=== PATIENT | female | born 1995 | race Hispanic/Latino ===

== ENCOUNTER 2021-03-19 20:51 | Day surgery (SDC) | payer OTHER ==
[2021-03-19] MEDS ORDERED: hydrALAZINE 20 MG/ML VIAL SLOW IVP PRN (22:01)
[2021-03-19 22:04] VITALS: BMI 26.9
[2021-03-19 22:16] LABS: Bilirubin Neg (Negative); Blood, Urine Negative (Negative); Glucose, Urine (Dipstick) Normal (Negative); Ketone, Urine Negative (Negative); Leukocyte Negative (Negative); Nitrite Negative (Negative); Protein, Urine (Dipstick) Negative (Neg-Trace); Specific Gravity, Urine 1.015 (1.002-1.036); Urobilinogen Normal mg/dL (Less than 2)
[2021-03-19 22:19] LABS: Clarity Hazy (Clear)
[2021-03-19 22:27] LABS: Fetal Membranes Rupture No Membranes Rupture (No Rupture)
[2021-03-19 22:30] LABS: Bacteria/HPF 2+ HPF (None Seen); Mucous/LPF 2+ LPF (<2+); RBC/HPF 0-3 HPF (0-3); Squamous Epithelial 0-3 HPF (0-3); WBC/HPF 0-3 HPF (0-3)
[2021-03-20] MEDS ORDERED: metroNIDAZOLE 500 MG TAB PO SCH (21:00)
== END 2021-03-19 22:50 | disposition home or self-care (01) ==
LOC: CSHLD/OP 20:51
PROVIDERS: ATTEND Family Medicine
DX: O99.891 Other specified diseases and conditions complicating pregnancy (principal); O34.219 Maternal care for unspecified type scar from previous cesarean delivery; N85.8 Other specified noninflammatory disorders of uterus; N89.8 Other specified noninflammatory disorders of vagina; Z3A.23 23 weeks gestation of pregnancy; Z87.59 Personal history of other complications of pregnancy, childbirth and the puerperium; Z79.899 Other long term (current) drug therapy
CPT/HCPCS: 81001; 84112; 87480; 87510; 87660

== ENCOUNTER 2021-06-29 08:26 | Outpatient (CLI) | payer OTHER ==
[2021-06-29 10:36] LABS: Hemoglobin 11.1 g/dL (12.0-15.5); Mean Corpuscular HGB CONC 33.8 g/dL (32.0-36.0); Mean Corpuscular Hemoglobin 28.4 pg (27.0-33.0); Mean Corpuscular Volume 83.9 fl (81.6-98.3); Mean Platelet Volume 8.8 fl (7.4-10.4); Platelet Count 316 10x3/uL (150-450); RBC Distribution Width 14.4 % (11.5-14.5); Red Blood Cell (RBC) Count 3.91 10x6/uL (3.90-5.03); White Blood Cell (WBC) Count 11.1 10x3/uL (3.5-10.5)
[2021-06-29 10:39] LABS: Hep B Surf Ag Non-Reactive S/CO (NonReactive); Syphilis Antibody Nonreactive (Nonreactive); Syphilis Antibody Index 0.03 S/CO (<1.00 Non-Reactive)
[2021-06-29 10:55] LABS: HBSAg Index 0.15 S/CO (0-0.99)
[2021-06-30 10:45] LABS: SARS-CoV-2 PCR by NAA DETECTED (NotDetected)
== END 2021-06-29 08:27 | disposition home or self-care (01) ==
LOC: EDUNIT# 08:26 → CSHLAB 08:26
PROVIDERS: ATTEND Family Medicine
DX: U07.1 COVID-19 (principal)
CPT/HCPCS: 85027; 86780; 86900; 86901; 87340; U0003; U0005

== ENCOUNTER 2021-07-03 10:07 | Inpatient (IN) | payer MEDICAID, OTHER ==
[2021-07-03 10:37] VITALS: BMI 32.4
[2021-07-03] MEDS ORDERED: hydrALAZINE 20 MG/ML VIAL SLOW IVP PRN ×2 (10:39→15:09)
[2021-07-03] MEDS ORDERED: Bicitra 30 ML UDCUP PO PRN (10:39)
[2021-07-03] MEDS ORDERED: Promethazine HCl 25 MG/ML VIAL IM PRN ×2 (10:39→13:16)
[2021-07-03] MEDS ORDERED: ceFAZolin 2 GM/Dextrose 50 ML 2 GM in Premix Bag 1 BAG IVPB SCH (10:39)
[2021-07-03] MEDS ORDERED: Famotidine/PF 20 mg/2ml Vial SLOW IVP PRN (10:39)
[2021-07-03] MEDS ORDERED: Ondansetron PF 4 MG/2 ML Vial IVP PRN ×3 (10:39→15:09)
[2021-07-03] MEDS ORDERED: Lactated Ringer's 1,000 ML IV SCH (10:39)
[2021-07-03] MEDS ORDERED: Morphine PF 10 MG/10 ML VIAL ONE (11:50)
[2021-07-03] MEDS ORDERED: Phenylephrine 10 MG/ML VIAL ONE (11:51)
[2021-07-03] MEDS ORDERED: Fentanyl 100 MCG/2 ML VIAL ONE (11:51)
[2021-07-03] MEDS ORDERED: Oxytocin 10 UNITS/ML VIAL ONE (11:51)
[2021-07-03] MEDS ORDERED: Dexamethasone 4 mg/ml Vial ONE (12:43)
[2021-07-03] MEDS ORDERED: Ketorolac Tromethamine 30 MG/ML VIAL ONE (12:43)
[2021-07-03] MEDS ORDERED: diphenhydrAMINE 50 MG/ML VIAL ONE (12:43)
[2021-07-03] MEDS ORDERED: Ondansetron PF 4 MG/2 ML Vial ONE (12:43)
[2021-07-03] MEDS ORDERED: HYDROmorphone 2 MG/ML VIAL SLOW IVP PRN (13:16)
[2021-07-03] MEDS ORDERED: Naloxone HCl 0.4 mg/ml Vial IVP PRN ×2 (13:16)
[2021-07-03] MEDS ORDERED: Naloxone HCl 0.4 mg/ml Vial IV PRN (13:16)
[2021-07-03] MEDS ORDERED: Fentanyl 100 MCG/2 ML VIAL SLOW IVP PRN (13:16)
[2021-07-03] MEDS ORDERED: Ketorolac Tromethamine 30 MG/ML VIAL IVP PRN (13:16)
[2021-07-03] MEDS ORDERED: Meperidine HCl/PF 25 MG/ML VIAL SLOW IVP PRN (13:16)
[2021-07-03] MEDS ORDERED: Promethazine HCl 25 MG SUPP PR PRN (13:16)
[2021-07-03] MEDS ORDERED: diphenhydrAMINE 50 MG/ML VIAL IVP PRN (13:16)
[2021-07-03] MEDS ORDERED: Hydrocerin (Eucerin) Cream 120 gm Jar TOP PRN (13:16)
[2021-07-03] MEDS ORDERED: Ondansetron HCl/PF 4 MG/2 ML Vial IVP PRN (13:16)
[2021-07-03] MEDS ORDERED: Communication Order-Pharmacy FS SCH (13:30)
[2021-07-03] MEDS ORDERED: Ketorolac Tromethamine 30 MG/ML VIAL IVP SCH (13:30)
[2021-07-03] MEDS ORDERED: NS w/ Oxytocin 30 units 500 ML ONE (14:14)
[2021-07-03] MEDS ORDERED: NS w/ Oxytocin 30 units 500 ML IV SCH (15:09)
[2021-07-03] MEDS ORDERED: diphenhydrAMINE 25 MG CAP PO PRN (15:09)
[2021-07-03] MEDS ORDERED: Bisacodyl 10 MG SUPP PR PRN (15:09)
[2021-07-03] MEDS ORDERED: Lanolin Ointment 7 GM TUBE TOP PRN (15:09)
[2021-07-03] MEDS: Ketorolac Tromethamine 30 MG/ML VIAL IVP SCH (19:20)
[2021-07-03] MEDS: Ferrous Sulfate 325 MG TAB PO SCH (19:37)
[2021-07-03] MEDS: Docusate 100 MG CAP PO SCH (21:06)
[2021-07-04] MEDS: Ketorolac Tromethamine 30 MG/ML VIAL IVP SCH ×2 (00:54→06:01)
[2021-07-04 04:33] LABS: Hemoglobin 9.3 g/dL (12.0-15.5); Mean Corpuscular HGB CONC 33.9 g/dL (32.0-36.0); Mean Corpuscular Hemoglobin 28.7 pg (27.0-33.0); Mean Corpuscular Volume 84.6 fl (81.6-98.3); Mean Platelet Volume 8.7 fl (7.4-10.4); Platelet Count 241 10x3/uL (150-450); RBC Distribution Width 14.3 % (11.5-14.5); Red Blood Cell (RBC) Count 3.24 10x6/uL (3.90-5.03); White Blood Cell (WBC) Count 11.8 10x3/uL (3.5-10.5)
[2021-07-04] MEDS: Ferrous Sulfate 325 MG TAB PO SCH ×2 (08:55→21:32)
[2021-07-04] MEDS: Docusate 100 MG CAP PO SCH ×2 (08:55→21:32)
[2021-07-04] MEDS: Prenatal Vitamin 1 TAB PO SCH (08:55)
[2021-07-04] MEDS: HYDROcodone/Acetaminophen 5/325 mg Tablet PO PRN ×2 (15:01→19:45)
[2021-07-04] MEDS ORDERED: Boostrix 0.5 ML (Tdap) VIAL IM ONE (15:09)
[2021-07-04] MEDS: Ibuprofen 800 MG TAB PO SCH (21:32)
[2021-07-05] MEDS: Ibuprofen 800 MG TAB PO SCH ×3 (05:17→21:07)
[2021-07-05] MEDS: Prenatal Vitamin 1 TAB PO SCH (09:14)
[2021-07-05] MEDS: Docusate 100 MG CAP PO SCH ×2 (09:14→21:07)
[2021-07-05] MEDS: Ferrous Sulfate 325 MG TAB PO SCH ×2 (09:14→21:07)
[2021-07-05] MEDS: HYDROcodone/Acetaminophen 5/325 mg Tablet PO PRN ×2 (09:17→17:20)
[2021-07-06] MEDS: Ibuprofen 800 MG TAB PO SCH ×2 (05:01→15:04)
[2021-07-06 08:08] VITALS: BP 108/62; TEMP 98.2
[2021-07-06] MEDS: Prenatal Vitamin 1 TAB PO SCH (09:24)
[2021-07-06] MEDS: Docusate 100 MG CAP PO SCH (09:24)
[2021-07-06] MEDS: Ferrous Sulfate 325 MG TAB PO SCH (09:24)
[2021-07-06] MEDS: HYDROcodone/Acetaminophen 5/325 mg Tablet PO PRN ×2 (09:26→15:13)
== END 2021-07-06 15:24 | disposition home or self-care (01) | DRG 788 ==
LOC: CSHLD 10:07 → CSHPP 15:28
PROVIDERS: ADMIT Family Medicine; ATTEND Family Medicine
PROC: 10D00Z1 Extraction of Products of Conception, Low, Open Approach (ICD-10-PCS; principal; 2021-07-03)
DX: O34.211 Maternal care for low transverse scar from previous cesarean delivery (principal); Z37.0 Single live birth; Z3A.39 39 weeks gestation of pregnancy
CPT/HCPCS: 36415; 51702; 85027; 86850; 86900; 86901; J1100; J1200; J1885; J2274; J2370; J2405; J2590; J3010